=== PATIENT | female | born 1950 | race Caucasian/White ===

== ENCOUNTER 2018-08-11 15:25 | Emergency (ER) | payer MEDICARE, MEDICAID ==
[~2018-08-11] VITALS: Ht 152.4 cm; Wt 86.2 kg
[2018-08-11] MEDS ORDERED: TOPROL XL25 MG PO (15:33)
[2018-08-11] MEDS ORDERED: COZAAR 25 MG TA25 M1 PO (15:33)
[2018-08-11 15:50] LABS: HEMATOCRIT 48.2 % (37.0-47.0); HEMOGLOBIN 16.5 gm/dL (12.0-15.0); MCHC 34.3 g/dL (28.0-37.0); MCV 90.4 fL (80.0-100.0); MPV 9.6 fl. (7.2-11.1); NUCLEATED RBCS 0 /100WBC; PLATELET COUNT* 170 thou/uL (150-400); RBC 5.33 mil/uL (4.20-5.00); RDW-CV 13.6 % (10.5-14.5); WBC 10.8 thou/uL (4.0-11.0)
[2018-08-11 15:58] LABS: PROTIME 10.6 Seconds (9.20-11.50)
[2018-08-11 16:00] LABS: BE -1.3 mmol/L (-2 to +3); PCO2 42.4 mmHg (35.0-45.0); pH 7.371 (7.340-7.450)
[2018-08-11 16:03] LABS: PO2 411.9 mmHg (75.0-100.0)
[2018-08-11 16:08] LABS: ANION GAP 13 mmol/L (7-16); BUN 21 mg/dL (7-18); CALCIUM 9.5 mg/dL (8.5-10.1); CHLORIDE 103 mmol/L (98-107); CO2 27 mmol/L (21-32); CREATININE 1.3 mg/dL (0.6-1.3); GLUCOSE 125 mg/dL (70-99); POTASSIUM 3.8 mmol/L (3.5-5.1); SODIUM 143 mmol/L (136-145); TROPONIN-I LEVEL <0.06 ng/mL (<0.06)
[2018-08-11 16:10] LABS: ALBUMIN 3.4 g/dL (3.4-5.0); ALKALINE PHOSPHATASE 84 U/L (46-116); LIPASE 154 U/L (73-393); NT-PRO BRAIN NAT PEPTIDE 179 pg/mL (<300); SGOT 43 U/L (15-37); SGPT 54 U/L (30-65); TOTAL BILIRUBIN 0.4 mg/dL (<0.1-1.0); TOTAL PROTEIN 7.9 g/dL (6.4-8.2)
[2018-08-11 16:27] LABS: ABSOLUTE EOSINOPHILS 0.1 thou/uL (0.0-0.7); ABSOLUTE LYMPHOCYTES 3.6 thou/uL (0.8-5.3); ABSOLUTE MONOCYTES 0.5 thou/uL (0.0-1.2); ABSOLUTE NEUTROPHILS 6.6 thou/uL (1.6-8.1); PLATELET ESTIMATE ADEQUATE
[2018-08-11 19:13] VITALS: BP 147/93
--- NOTE | 2018-08-12 08:57 | EKG ---
[place] [address] ELECTROCARDIOGRAM REPORT Name: MARIBEL MELO [id number] Admission: 08/11/18 Attend Phys: Discharge: 08/11/18 Date of : 50 Report #: [id number] THIS REPORT FOR: //name// [facility] ED Test Date: 2018-08-11 Test Time: 15:36:05 Pat Name: MARIBEL MELO Department: Room: Gender: F [employer]rentice: SIRI : 1950 Requested By: Onel Ang Order Number: [id number] MD: Panchito Avery Measurements Intervals [place] Rate: 83 P: 68 CT: 157 QRS: 44 QRSD: 90 T: 75 QT: 369 QTc: 434 Interpretive Statements Sinus rhythm Baseline wander in lead(s) V3 No previous ECG available for comparison Electronically Signed On 08-12-2018 8:57:09 CDT by Panchito Avery [email or web address] <ELECTRONICALLY SIGNED> By: Panchito Avery MD, [facility] 08/12/18 [id number] Panchito Avery MD, FACC /EPI
== END 2018-08-11 19:14 | disposition short-term general hospital (02) ==
LOC: M.ERS 15:25
PROVIDERS: Emergency Medicine
DX: C32.9 Malignant neoplasm of larynx, unspecified (principal); R06.00 Dyspnea, unspecified; Z88.8 Allergy status to other drugs, medicaments and biological substances; Z91.041 Radiographic dye allergy status